=== PATIENT | female | born 1995 | race Caucasian/White ===

== ENCOUNTER 2017-10-23 11:33 | Emergency (ER) | payer MEDICAID, OTHER ==
[2017-10-23 12:00] VITALS: BP 99/66
--- NOTE | 2017-10-23 12:44 | ED ---
Throat Pain/Nasal Congestion - HPI Summary HPI Summary: 32-year-old female presents with sinus congestion and cough for the past 4 days. She has history asthma and she smokes. She admits to some chest tightness but denies any pain. She denies any abdominal pain. No nausea no vomiting. She has run out of her inhaler. She has not taking anything for her symptoms. She denies any sore throat. No fevers. No headache. - History of Current Complaint Chief Complaint: UCGeneralIllness Time Seen by Provider: 10/23/17 12:35 - Allergies/Home Medications Allergies/Adverse Reactions: Allergies Allergy/AdvReac Type Severity Reaction Status Date / Time No Known Allergies Allergy Verified 10/23/17 12:00 Home Medications: Home Medications Levonorgestrel (Iud) [Mirena IUD] 10/23/17 [History] PMH/Surg Hx/FS Hx/Imm Hx Endocrine/Hematology History: Denies: Hx Diabetes, Hx Thyroid Disease Cardiovascular History: Denies: Hx Hypertension Respiratory History: Reports: Hx Asthma Denies: Hx Chronic Obstructive Pulmonary Disease (COPD) GI History: Reports: Hx Obstructive Bowel - HAD A RECENT DIAGNOSIS OF "BOWEL OBSTRUCTION". SHE HAS NEVER HAD SURGERY. Denies: Hx Ulcer - Surgical History Surgery Procedure, Year, and Place: denies Infectious Disease History: No Infectious Disease History: Denies: Hx Hepatitis, Hx Human Immunodeficiency Virus (HIV), Traveled Outside the [place] in Last 30 Days - Family History Known Family History: Positive: Respiratory Disease - Social History Alcohol Use: Occasionally Substance Use Type: Reports: None Hx Tobacco Use: No Smoking Status (MU): Heavy Every Day Tobacco Smoker Review of Systems Negative: Fever Negative: Chest Pain Positive: Shortness Of Breath, Cough Negative: Abdominal Pain All Other Systems Reviewed And Are Negative: Yes Physical Exam Triage Information Reviewed: Yes Vital Signs On Initial Exam: Initial Vitals Temp Pulse Resp BP Pulse Ox 98.6 F 99 18 99/66 99 10/23/17 11:55 10/23/17 11:55 10/23/17 11:55 10/23/17 11:55 10/23/17 11:55 Vital Signs Reviewed: Yes Appearance: Positive: Well-Appearing Skin: Positive: Warm, Dry Head/Face: Positive: Normal Head/Face Inspection Eyes: Positive: Normal, EOMI, CLAY, Conjunctiva Clear ENT: Positive: Normal ENT inspection, Pharynx normal, TMs normal Respiratory/Lung Sounds: Positive: Clear to Auscultation, Breath Sounds Present , Other - neg egophony Cardiovascular: Positive: Normal, RRR Abdomen Description: Positive: Nontender, Soft Bowel Sounds: Positive: Present Musculoskeletal: Positive: Normal Neurological: Positive: Normal Psychiatric: Positive: Normal Diagnostics - Vital Signs Vital Signs Temp Pulse Resp BP Pulse Ox 10/23/17 11:55 98.6 F 99 18 99/66 99 - Laboratory Lab Statement: Any lab studies that have been ordered have been reviewed, and results considered in the medical decision making process. EENT Course/Dx - Course Course Of Treatment: 32-year-old female presents with sinus congestion and cough for the past 4 days. She has history asthma and she smokes. She admits to some chest tightness but denies any pain. She denies any abdominal pain. No nausea no vomiting. She has run out of her inhaler. She has not taking anything for her symptoms. She denies any sore throat. No fevers. No headache. On exam lungs clear to auscultation. Negative egophony. We'll treat with inhaler and steroid. Patient understands agrees with plan. - Differential Diagnoses Differential Diagnoses: Influenza, URI/Bronchitis, Other - pneumonia - Diagnoses Provider Diagnoses: Upper respiratory infection Discharge - Sign-Out/Discharge Documenting (check all that apply): Discharge/Admit/Transfer - Discharge Plan Condition: Good Disposition: HOME Prescriptions: Albuterol HFA INHALER* [Ventolin HFA Inhaler*] 1 puff INH Q6H PRN #1 mdi PRN Reason: Sob/Wheezing Benzonatate CAP* [Tessalon 100 MG CAP*] 100 mg PO TID PRN #21 cap PRN Reason: Cough predniSONE TAB* [Deltasone TAB*] 50 mg PO DAILY #5 tab Patient Education Materials: Upper Respiratory Infection (ED) Forms: *Work Release Referrals: Eladio AGUILAR,Froy Fernandes [Primary Care Provider] - Additional Instructions: Use Tessalon three times a day for cough Use inhaler one puff every 4 hours for cough as needed Take steroid once a day for 5 days Use saline in the nose Use humidifier or place warm bowls of water around the room Cough can last up to 4 weeks Follow up with primary care physician in 5 days Return to ED if develop any new or worsening symptoms - Billing Disposition and Condition Condition: GOOD Disposition: Home
== END 2017-10-23 12:57 | disposition home or self-care (01) ==
LOC: UCEAST 11:33
DX: J06.9 Acute upper respiratory infection, unspecified (principal); Z72.0 Tobacco use
CPT/HCPCS: 99212; G0463

== ENCOUNTER 2018-02-22 18:12 | Emergency (ER) | payer OTHER ==
[2018-02-22] MEDS ORDERED: Ketorolac INJ* 30 MG/ML 1 ML VIAL IM ONE (19:30)
--- NOTE | 2018-02-22 19:31 | ED ---
Back Pain - HPI Summary HPI Summary: 23-year-old female presents with back pain for the past week. She states she initially had an injury year ago at work. She states it got better but this past week it flared up again. She states that she has pain greatest on the right side of her back. States that occasionally she gets pain down the legs. No numbness or tingling. No weakness. States pain is greatest with ambulation. No fevers. No saddle anaesthesia or loss of bowel or bladder. She was seen at [facility] couple days ago had a CT due to the possible herniation. She states that she is getting an outpatient MRI. She is a follow up with PT next week. She was given pain medication by [facility]. She states that she is just here for work note. - History of Current Complaint Chief Complaint: EDBackInjuryPain Stated Complaint: BACK INJURY Time Seen by Provider: 02/22/18 19:01 Hx Last Menstrual Period: mirena Pain Intensity: 6 - Allergies/Home Medications Allergies/Adverse Reactions: Allergies Allergy/AdvReac Type Severity Reaction Status Date / Time No Known Allergies Allergy Verified 10/23/17 12:00 PMH/Surg Hx/FS Hx/Imm Hx Endocrine/Hematology History: Denies: Hx Diabetes, Hx Thyroid Disease Cardiovascular History: Denies: Hx Hypertension Respiratory History: Reports: Hx Asthma Denies: Hx Chronic Obstructive Pulmonary Disease (COPD) GI History: Reports: Hx Obstructive Bowel - HAD A RECENT DIAGNOSIS OF "BOWEL OBSTRUCTION". SHE HAS NEVER HAD SURGERY. Denies: Hx Ulcer - Surgical History Surgery Procedure, Year, and Place: denies Infectious Disease History: No Infectious Disease History: Denies: Hx Hepatitis, Hx Human Immunodeficiency Virus (HIV), Traveled Outside the [place] in Last 30 Days - Family History Known Family History: Positive: Respiratory Disease - Social History Alcohol Use: Occasionally Substance Use Type: Reports: None Hx Tobacco Use: No Smoking Status (MU): Heavy Every Day Tobacco Smoker Review of Systems Negative: Fever Negative: Chest Pain Negative: Shortness Of Breath Positive: Myalgia - back pain All Other Systems Reviewed And Are Negative: Yes Physical Exam Triage Information Reviewed: Yes Vital Signs On Initial Exam: Initial Vitals Temp Pulse Resp BP Pulse Ox 97.3 F 79 16 113/56 99 02/22/18 18:16 02/22/18 18:16 10/20/18 18:16 02/22/18 18:16 02/22/18 18:16 Vital Signs Reviewed: Yes Appearance: Positive: Well-Appearing Skin: Positive: Warm, Dry Head/Face: Positive: Normal Head/Face Inspection Eyes: Positive: Normal, Conjunctiva Clear ENT: Positive: Pharynx normal Respiratory/Lung Sounds: Positive: Clear to Auscultation, Breath Sounds Present Cardiovascular: Positive: Normal, RRR Abdomen Description: Positive: Nontender, Soft Bowel Sounds: Positive: Present Musculoskeletal: Positive: Limited @ - back, Other - tenderness loewr back, neg SLR, good pulses, sensation grossly intact Neurological: Positive: Normal, Babinski Bilateral - normal Psychiatric: Positive: Normal Diagnostics - Vital Signs Vital Signs Temp Pulse Resp BP Pulse Ox 02/22/18 18:16 97.3 F 79 16 113/56 99 - Laboratory Lab Statement: Any lab studies that have been ordered have been reviewed, and results considered in the medical decision making process. Back Pain Course/Dx - Course Course Of Treatment: 23-year-old female presents with back pain for the past week. She states she initially had an injury year ago at work. She states it got better but this past week it flared up again. She states that she has pain greatest on the right side of her back. States that occasionally she gets pain down the legs. No numbness or tingling. No weakness. States pain is greatest with ambulation. No fevers. No saddle anaesthesia or loss of bowel or bladder. She was seen at [facility] couple days ago had a CT due to the possible herniation. She states that she is getting an outpatient MRI. She is a follow up with PT next week. She was given pain medication by [facility]. She states that she is just here for work note. On exam neurovascular intact. Tenderness lower back. Gave medrol dose back for pain. gave work note. Told to follow with primary. Patient understands agrees with plan. - Diagnoses Differential Diagnosis/HQI/PQRI: Positive: Fracture, Strain, Sprain Provider Diagnoses: Back pain Discharge - Sign-Out/Discharge Documenting (check all that apply): Patient Departure - Discharge Plan Condition: Good Disposition: HOME Prescriptions: methylPREDNISolone [Medrol Dosepak 4 MG*] 4 mg PO .SEE VINICIO INSTRUCTION #1 packet Patient Education Materials: Back Pain (ED) Forms: *Work Release Referrals: Eladio AGUILAR,Froy Fernandes [Primary Care Provider] - Additional Instructions: Follow directions on package for Medrol pack Use ibuprofen or Tylenol for pain every 6 hours ice/heat area, move as much as possible Follow up with primary within 5 days Return to ED if develop any new or worsening symptoms - Billing Disposition and Condition Condition: GOOD Disposition: Home
[2018-02-22 19:54] VITALS: BP 114/79
== END 2018-02-22 19:52 | disposition home or self-care (01) ==
LOC: ED 18:12
DX: M54.9 Dorsalgia, unspecified (principal); F17.200 Nicotine dependence, unspecified, uncomplicated
CPT/HCPCS: 96372; 99281; J1885

== ENCOUNTER 2018-07-27 13:48 | Emergency (ER) | payer SELFPAY ==
--- NOTE | 2018-07-27 14:14 | ED ---
Influenza-Like Illness - HPI Summary HPI Summary: A 23 y/o F presents to ED with c/o ongoing flu-like symptoms onset three days ago. Pain is described as diffuse aching. Associated sx: body aches, sore throat , cough, congestion, chills, decreased oral intake. PMHx: asthma, ovarian cysts , pelvic inflammatory disease. - History of Current Complaint Chief Complaint: EDFluSymptoms Time Seen by Provider: 07/27/18 14:08 Hx Obtained From: Patient Onset/Duration: Gradual Onset, Lasting Days, Still Present Severity: Severe - 8 out of 10 Associated Signs & Symptoms: Myalgia, Cough, Sore Throat Related Hx: Smoking - Allergy/Home Medications Allergies/Adverse Reactions: Allergies Allergy/AdvReac Type Severity Reaction Status Date / Time No Known Allergies Allergy Verified 07/27/18 13:55 PMH/Surg Hx/FS Hx/Imm Hx Previously Healthy: Yes Endocrine/Hematology History: Denies: Hx Diabetes, Hx Thyroid Disease Cardiovascular History: Denies: Hx Hypertension Respiratory History: Reports: Hx Asthma Denies: Hx Chronic Obstructive Pulmonary Disease (COPD) GI History: Reports: Hx Obstructive Bowel - HAD A RECENT DIAGNOSIS OF "BOWEL OBSTRUCTION". SHE HAS NEVER HAD SURGERY. Denies: Hx Ulcer History: Reports: Other Problems/Disorders - PID, ovarian cysts - Surgical History Surgery Procedure, Year, and Place: denies Infectious Disease History: No Infectious Disease History: Denies: Hx Hepatitis, Hx Human Immunodeficiency Virus (HIV), Traveled Outside the [place] in Last 30 Days - Family History Known Family History: Positive: Respiratory Disease - Social History Occupation: Employed Full-time Lives: With Family Alcohol Use: Occasionally Hx Substance Use: No Substance Use Type: Reports: None Hx Tobacco Use: Yes Smoking Status (MU): Heavy Every Day Tobacco Smoker Review of Systems Positive: Chills, Other - pos: myalgia, decreased oral intake Positive: Sore Throat, Other - pos: congestion Positive: Cough All Other Systems Reviewed And Are Negative: Yes Physical Exam - Summary Physical Exam Summary: Appearance: The patient is well-nourished in no acute distress and in no acute pain. Skin: The skin is warm and dry and skin color reflects adequate perfusion. HEENT: The head is normocephalic and atraumatic. The pupils are equal and reactive. The conjunctivae are clear and without drainage. Nares are patent and without drainage. Mouth reveals moist mucous membranes. The posterior pharynx is erythematous. The external ears are intact. The ear canals are patent and without drainage. The tympanic membranes are intact. Neck: the neck is supple with full range of motion and non-tender. There are no carotid bruits. There is no neck vein distension. Respiratory: Chest is non-tender. Lungs are clear to auscultation and breath sounds are symmetrical and equal. Cardiovascular: Heart is regular rate and rhythm. There is no murmur or rub auscultated. There is no peripheral edema and pulses are symmetrical and equal. Abdomen: The abdomen is soft and non-tender. There are normal bowel sounds heard in all four quadrants and there is no organomegaly palpated. Musculoskeletal: There is no back tenderness noted. Extremities are non-tender with full range of motion. There is good capillary refill. There is no peripheral edema or calf tenderness elicited. Neurological: Patient is alert and oriented to person, place and time. The patient has symmetrical motor strength in all four extremities. Cranial nerves are grossly intact. Deep tendon reflexes are symmetrical and equal in all four extremities. Psychiatric: The patient has an appropriate affect and does not exhibit any anxiety or depression. Triage Information Reviewed: Yes Vital Signs On Initial Exam: Initial Vitals Temp Pulse Resp BP Pulse Ox 99.5 F 79 20 127/92 98 07/27/18 13:52 07/27/18 13:52 07/27/18 13:52 07/27/18 13:52 07/27/18 13:52 Vital Signs Reviewed: Yes Diagnostics - Vital Signs Vital Signs Temp Pulse Resp BP Pulse Ox 07/27/18 13:52 99.5 F 79 20 127/92 98 - Laboratory Lab Statement: Any lab studies that have been ordered have been reviewed, and results considered in the medical decision making process. Re-Evaluation - Re-Evaluation 1 Re-Evaluation Time: 16:00 Change: Improved Comment: Discussing results with pt and plans for DC. Flu Symptom Course/Dx - Course Course Of Treatment: Ms. Schroeder presented with URI symptoms, She was nontoxic in appearance and her vitals were stable. Influenza swabs and and Strep test are negative and I recommended symptomatic treatment with F/U as needed. - Diagnoses Provider Diagnoses: Viral syndrome Discharge - Sign-Out/Discharge Documenting (check all that apply): Patient Departure - D/C Patient Received Moderate/Deep Sedation with Procedure: No - Discharge Plan Condition: Stable Disposition: HOME Patient Education Materials: Viral Syndrome (ED) Referrals: Eladio AGUILAR,Froy Fernandes [Primary Care Provider] - 2 Days Additional Instructions: Please return to the ED if you experience new or worsening symptoms. Follow up with your primary care provider in 2-3 days. - Billing Disposition and Condition Condition: STABLE Disposition: Home - Attestation Statements Document Initiated by Pieter: Yes Documenting Scribe: Miracle Moncada Provider For Whom Pieter is Documenting (Include Credential): Dr. Efren Covarrubias MD Scribe Attestation: Miracle Rose scribed for Dr. Efren Covarrubias MD on 07/27/18 at 1703. Scribe Documentation Reviewed: Yes Provider Attestation: The documentation as recorded by the Miracle reynolds accurately reflects the service I personally performed and the decisions made by me, Dr. Efren Covarrubias MD Status of Scribe Document: Viewed
[2018-07-27 14:38] LABS: Influenza A Molecular NEGATIVE (Negative); Influenza B Molecular NEGATIVE (Negative)
[2018-07-27 15:36] VITALS: BP 104/67
== END 2018-07-27 16:38 | disposition home or self-care (01) ==
LOC: ED 13:48
DX: B34.9 Viral infection, unspecified (principal); J45.909 Unspecified asthma, uncomplicated; F17.210 Nicotine dependence, cigarettes, uncomplicated
CPT/HCPCS: 87651; 99282